=== PATIENT | male | born 1970 | race Caucasian/White ===

== ENCOUNTER 2018-10-04 08:00 | Day surgery (SDC) | payer BC ==
[2018-09-29 13:43] VITALS: BMI 27.2
[~2018-10-04 08:00] MED LIST: LACTATED RINGERS 1,000 ML IV SCH
[2018-10-04 08:26] VITALS: TEMP 98
[2018-10-04] MEDS ORDERED: LIDOCAINE 1% 20 ML VIAL (10MG/ML) FOR IV START INTRADERMA ONE (08:39)
[2018-10-04] MEDS ORDERED: LIDOCAINE 1% INJ 10MG/ML (20 ML MDV) ONE (09:36)
[2018-10-04] MEDS ORDERED: PROPOFOL 10 MG/ML 20 ML VIAL IV ONE (09:36)
--- NOTE | 2018-10-04 10:11 | P.PCN ---
Date of Procedure: 10/04/18 Procedure(s) Performed: Procedure: Colonoscopy and biopsy. Preoperative diagnosis: History of colitis. Postoperative diagnosis: 1. Quiescent colitis with scattered small pseudopolyps. 2. Mild ileitis of uncertain clinical significance. 3. Biopsies obtained blindly from the terminal ileum and biopsies were also obtained from the right colon and sigmoid. Preparation: HalfLytely prep. Sedation: Was provided by anesthesia. Brief clinical history: The patient is a 48-year-old male who was previously diagnosed with colitis at around age 40 or 41 and has been doing well taking 2.4 g of mesalamine daily. The patient has occasional days with diarrhea but for the most part has been doing well and in clinical remission. This evaluation is to assess for neoplasia. Procedure: With the patient on his left lateral decubitus position and after informed consent and adequate sedation, the perianal area was inspected and it did not show any fissures or fistulas. There were no masses felt on digital rectal examination. The Olympus CFQ 160L video colonoscope was then inserted in the rectum in the usual fashion and advanced to the cecum. I was able to briefly advance the endoscope through the ileocecal valve into the terminal ileum but I was not able to maintain the position to obtain biopsies. There was an occasional aphthous ulceration in the terminal ileum and some erythema. I did obtain a blind biopsy from the terminal ileum. The colon, otherwise, showed no active colitis. There was changes consistent with quiescent colitis and scattered small polyps consistent with pseudopolyps. These changes were fairly diffuse, more obvious in the proximal colon. There was no friability or bleeding. I obtained biopsies from the right colon and sigmoid than I retroflexed endoscope in the rectum before the endoscope was withdrawn. The patient tolerated the procedure well. Plan: The patient was reassured. I will make further plans based on his course and biopsy results. I will keep you updated on his progress.
[2018-10-04 10:35] VITALS: RESP 18
[2018-10-04 10:54] VITALS: BP 105/56; PULSE 55
== END 2018-10-04 11:11 | disposition home or self-care (01) ==
LOC: ORWHC2ENDO 08:00
DX: K51.40 Inflammatory polyps of colon without complications (principal); K63.89 Other specified diseases of intestine; K21.9 Gastro-esophageal reflux disease without esophagitis; E78.5 Hyperlipidemia, unspecified; Z79.899 Other long term (current) drug therapy
CPT/HCPCS: 88305; 45380; J2001; J2704

== ENCOUNTER → 2020-09-25 | Day surgery (SDC) | payer BC ==
[2020-09-24 08:09] VITALS: BMI 26.5
[~2020-09-25] MED LIST changes: +LIDOCAINE 1% (10MG/ML) FOR IV START INTRADERMA PRN; +LIDOCAINE 1% INJ 10MG/ML (20 ML MDV) ONE; +PROPOFOL 10 MG/ML 20 ML VIAL IV ONE
[2020-09-25 11:39] VITALS: RESP 16; TEMP 98.5
--- NOTE | 2020-09-25 13:39 | P.PCN ---
Date of Procedure: 09/25/20 Description of Procedure: BRIEF HISTORY: Patient is a 50-year-old male with a known history of ulcerative colitis presenting for EGD and colonoscopy for evaluation of GERD and ulcerative colitis. The patient has been having problems with nausea, indigestion. He was started on Prilosec therapy. Ulcerative colitis diagnosed in 2012 maintained on the Elder. Generally 4 bowel movements daily with no abdominal pain or bleeding. PROCEDURE PERFORMED: Esophagogastroduodenoscopy with biopsy. Colonoscopy with biopsy. PREOPERATIVE DIAGNOSIS: GERD, ulcerative colitis, less colonoscopy in 2018 with findings of quiescent colitis. ESTIMATED BLOOD LOSS: Minimal. IV sedation per anesthesia. PROCEDURE: After informed consent was obtained, the patient was brought into the endoscopy unit. IV sedation was administered by Anesthesia under continuous monitoring. Initially the Olympus GIF-190 video endoscope was inserted into the mouth. Esophagus intubated without any difficulty. It was gradually advanced into the stomach and duodenum and carefully examined. The bulb and the second part of the duodenum appeared normal, with biopsies taken to rule out celiac sprue. The scope at this time was withdrawn to the stomach, adequately insufflated with air, and upon careful examination, mucosa of the antrum, body, cardia and the fundus appeared normal, except for some moderate erythema in the antrum and body suggestive of moderate gastritis with biopsies taken. The scope was then withdrawn into the esophagus. The GE junction was located at 39 cm from the incisors and biopsied. 1 cm hiatal hernia noted. The esophagus appeared normal. There were no erosions or ulcerations seen and the patient tolerated the procedure well. After informed consent was obtained, the patient, was brought into the endoscopy unit. IV sedation was administered by Anesthesia under continuous monitoring. Digital rectal examination was normal. Initially the Olympus CF-190 flexible video colonoscope was then inserted in the rectum, gradually advanced into the cecum without any difficulty. Careful examination was performed as the scope was gradually being withdrawn. Ileocecal valve and the appendiceal orifice were visualized and appeared normal. Prep was excellent. Mucosa of the cecum, ascending colon, transverse colon, descending colon, sigmoid colon, and rectum appeared normal, except for some hypovascularity likely related to previously active ulcerative colitis and some scattered pseudopolyps, with biopsies taken of the right colon, transverse colon, left colon and rectum. The terminal ileum was intubated and appeared normal. Retroflexion was performed in the rectum and no lesions were seen, low-grade internal hemorrhoids. The patient tolerated the procedure well. IMPRESSION: Moderate gastritis. Biopsies taken of the duodenum, antrum and body and GE junction. Low-grade internal hemorrhoids. No evidence of active colitis from rectum to cecum, there is some evidence of prior disease with some hypovascularity noted and some scattered pseudopolyps. Biopsies taken of the right colon, transverse colon, left colon and rectum. RECOMMENDATIONS: Findings of this examination were discussed with the patient in his father. Okay to resume diet. Okay to resume medications. Follow-up in GI clinic as scheduled for results of biopsies. Continue current medical management. Repeat colonoscopy in 2 years for follow-up of colitis..
[2020-09-25 13:52] VITALS: BP 119/73; PULSE 64
== END ==
LOC: ORWHC2ENDO 10:42
PROVIDERS: ATTEND Internal Medicine
DX: K29.50 Unspecified chronic gastritis without bleeding (principal); K44.9 Diaphragmatic hernia without obstruction or gangrene; K64.8 Other hemorrhoids; Z79.899 Other long term (current) drug therapy; E78.5 Hyperlipidemia, unspecified
CPT/HCPCS: 43239; 45380; 88305; J2001; J2704

== ENCOUNTER → 2021-02-08 | Outpatient (CLI) | payer OTHER ==
--- NOTE | 2021-02-08 07:43 | MR ---
EXAMINATION TYPE: MR shoulder RT wo con DATE OF EXAM: 02/08/2021 COMPARISON: None. HISTORY: Rt shoulder pain due to lifting injury TECHNIQUE: Multiplanar, multisequence imaging of the right shoulder is performed without contrast. FINDINGS: Exam is suboptimal as there is some artifact of uncertain etiology particularly on coronal images. There is also motion artifact degradation. Rotator Cuff: Intact distal supraspinatus and infraspinatus tendons. Intact subscapularis tendon. Rot ator cuff muscle bulk preserved. Some increased signal in the distal supraspinatus tendon. Acromioclavicular Joint: Mild to moderate narrowing greatest inferiorly. Mild spurring. Underlying fa t plane maintained. Distal acromion morphology unremarkable. Glenohumeral Joint: Small joint effusion. Mild narrowing. No significant spurring. Labrum: The labrum appears grossly intact given limitation of non-arthrogram study. Biceps Tendon: The long head of biceps is in normal location within bicipital groove. Bone marrow signal: No focal abnormal marrow signal is appreciated. Other: Increased fluid signal subdeltoid/subacromial bursa.. IMPRESSION: No rotator cuff or labral tear. Tendinosis distal supraspinatus tendon. Mild degenerative changes as detailed above.
== END | disposition home or self-care (01) ==
LOC: RADMRIMAIN 06:03
PROVIDERS: ATTEND Family Medicine
DX: S49.91XA Unspecified injury of right shoulder and upper arm, initial encounter (principal); M19.011 Primary osteoarthritis, right shoulder; M67.813 Other specified disorders of tendon, right shoulder

== ENCOUNTER 2021-04-18 06:09 | Emergency (ER) | payer OTHER ==
[2021-04-18 06:31] VITALS: TEMP 98.3
[2021-04-18] MEDS ORDERED: methylPREDNISolone SOD SUCCI 125 MG/2 ML VIAL IM STA (06:47)
[2021-04-18] MEDS ORDERED: MORPHINE SULFATE 4 MG/ML SYRINGE IV STA (06:47)
--- NOTE | 2021-04-18 06:51 | ED ---
Back Pain HPI - General Chief Complaint: Back Pain/Injury Stated Complaint: Back Pain Time Seen by Provider: 04/18/21 06:37 Source: patient, RN notes reviewed Limitations: no limitations - History of Present Illness Initial Comments: Patient is a 50-year-old male presents to emergency department complaining of right low back pain that radiates on the right. He denied any trauma or injury. He does note that he does have a history of sciatica and this does feel similar. He just notes that he is unable to get comfortable at this time and just wants some symptomatic relief. He notes that he does drive a lot and sits for work. He does note that he keeps his wall in the center console conservative back pocket. He did state that he had pinpoint tenderness over the superior aspect of the right buttock. He denied any weakness numbness tingling decreased range of motion or strength in his right lower extremity. He denied any chest pain shortness of breath headache nausea vomiting diarrhea constipation fever fatigue chills - Related Data Home Medications Medication Instructions Recorded Confirmed Atorvastatin [Lipitor] 10 mg PO HS 07/07/18 09/25/20 Cholecalciferol [Vitamin D3] 5,000 unit PO DAILY 07/07/18 09/25/20 Mesalamine [Lialda] 2.4 gm PO DAILY 07/07/18 09/25/20 Multivitamin [Men's Multi-Vitamin] 1 each PO DAILY 07/07/18 09/25/20 Omeprazole [PriLOSEC] 20 mg PO AC-BRKFST 07/07/18 09/25/20 Previous Rx's Medication Instructions Recorded predniSONE 50 mg PO DAILY #5 tab 04/18/21 Allergies Allergy/AdvReac Type Severity Reaction Status Date / Time No Known Allergies Allergy Verified 04/18/21 06:31 Review of Systems ROS Statement: Those systems with pertinent positive or pertinent negative responses have been documented in the HPI. ROS Other: All systems not noted in ROS Statement are negative. Past Medical History Past Medical History: GERD/Reflux, Hyperlipidemia Additional Past Medical History / Comment(s): hx ulcerative colitis History of Any Multi-Drug Resistant Organisms: None Reported Past Surgical History: Orthopedic Surgery Additional Past Surgical History / Comment(s): COLONOSCOPIES, NASAL SX, LT THUMB SX Past Anesthesia/Blood Transfusion Reactions: No Reported Reaction Additional Past Anesthesia/Blood Transfusion Reaction / Comment(s): "FEELS LIKE MY ARM IS ON FIRE WHEN THEY PUT MEDICATION IN MY IV" Past Psychological History: No Psychological Hx Reported Smoking Status: Never smoker Past Alcohol Use History: Occasional Past Drug Use History: None Reported - Past Family History Mother Family Medical History: Cancer Additional Family Medical History / Comment(s): BREAST General Exam Limitations: no limitations General appearance: alert, in no apparent distress Head exam: Present: atraumatic, normocephalic, normal inspection Eye exam: Present: normal appearance, PERRL, EOMI. Absent: scleral icterus, conjunctival injection, periorbital swelling Neck exam: Present: normal inspection Respiratory exam: Present: normal lung sounds bilaterally. Absent: respiratory distress, wheezes, rales, rhonchi, stridor Cardiovascular Exam: Present: regular rate, normal rhythm, normal heart sounds. Absent: systolic murmur, diastolic murmur, rubs, gallop, clicks GI/Abdominal exam: Present: soft, normal bowel sounds. Absent: distended, tenderness, guarding, rebound, rigid Extremities exam: Present: normal inspection, full ROM, normal capillary refill, other (Positive well leg raise test on the right.). Absent: tenderness, pedal edema, joint swelling, calf tenderness Back exam: Present: normal inspection. Absent: tenderness Neurological exam: Present: alert, oriented X3, CN II-XII intact Psychiatric exam: Present: normal affect, normal mood Skin exam: Present: warm, dry, intact, normal color. Absent: rash Course Vital Signs 04/18/21 06:27 Temperature 98.3 F Pulse Rate 62 Respiratory 20 Rate Blood Pressure 118/66 O2 Sat by Pulse 97 Oximetry Medical Decision Making - Medical Decision Making 50-year-old male complaining of right lower back/buttock pain that radiates down the right. X-ray of the lumbar spine, 125 mg of methylprednisolone, 4 mg of morphine ordered. X-ray negative for any acute process. Case discussed with Dr. Silvestre, patient discharge home with conservative management and follow-up primary care. - Radiology Data Radiology results: report reviewed, image reviewed X-ray of the lumbar spine: No evidence of loss of vertebral body height of the lumbar spine to suggest acute compression fracture. Findings are stable. No significant spondylolisthesis. Disposition Clinical Impression: Strain of lumbar region, Lumbar radiculopathy Disposition: HOME SELF-CARE Condition: Stable Instructions (If sedation given, give patient instructions): Acute Low Back Pain (ED) Additional Instructions: Please return to the Emergency Department if symptoms worsen or any other concerns. Take prednisone as prescribed. Can take Tylenol Motrin as needed for pain control. Follow-up primary care in the next 5-7 days. Avoid any strenuous lifting and/or activity. Prescriptions: predniSONE 50 mg PO DAILY #5 tab Is patient prescribed a controlled substance at d/c from ED?: No Referrals: Steve Kennedy MD [Primary Care Provider] - 1-2 days Time of Disposition: 08:04
--- NOTE | 2021-04-18 07:44 | XR ---
EXAMINATION TYPE: XR lumbar spine 2 or 3V DATE OF EXAM: 04/18/2021 CLINICAL HISTORY: Low back pain and right SI joint pain radiating down right leg to knee TECHNIQUE: Frontal, lateral, and oblique images of the lumbar spine are obtained. COMPARISON: 02/14/2019 FINDINGS: There are 5 nonrib-bearing lumbar-type vertebral bodies. Sacroiliac joints are grossly inta ct. There is maintenance of the normal lumbar lordosis. No loss of vertebral body height or intervert ebral disc space. No significant spondylolisthesis. Facets are in alignment. Paravertebral soft tissu es are unremarkable. Findings are stable. IMPRESSION: 1. No evidence of loss of vertebral body height of the lumbar spine to suggest acute compression frac ture. Findings are stable. No significant spondylolisthesis.
[2021-04-18 08:30] VITALS: BP 121/78; PULSE 52; RESP 18
== END 2021-04-18 08:14 | disposition home or self-care (01) ==
LOC: EC 06:09
DX: S39.012A Strain of muscle, fascia and tendon of lower back, initial encounter (principal); M54.16 Radiculopathy, lumbar region; E78.5 Hyperlipidemia, unspecified; K21.9 Gastro-esophageal reflux disease without esophagitis; X58.XXXA Exposure to other specified factors, initial encounter
CPT/HCPCS: 72100; 99283; 96374; 96372; J2270; J2930

== ENCOUNTER → 2021-07-05 | Outpatient (CLI) | payer OTHER ==
--- NOTE | 2021-07-05 12:30 | P.STRESS ---
- Stress Test Note Stress Test Results/Findings: Exam Performed: stress test Exam Date: 07/05/21 Reason for Exam: FH OF HEART DISEASE Height: 5 ft 10 in Weight: 84 kg Protocol: PANCHO Stage: 5 Duration of Exercise: 12:34 Resting Heart Rate: 59 Resting Blood Pressure: 123/75 Maximum Achieved Heart Rate: 188 Maximum Achieved Blood Pressure: 187/61 85% PMHR: 146 100% PMHR: 172 METS: 12.9 Technologist Comment: Stress Test Results/Findings: This is a 50-year-old gentleman being evaluated for cardiac status. Patient history of hypercholesteremia and family history of ischemic heart disease. Stress data: Baseline EKG showed sinus rhythm with normal NM and QRS duration. Blood pressure at rest is 123/75, pulse rate of 59. Patient walked on the Pancho protocol for 4 minutes and 34 seconds achieving a maximal rate of 188 with blood pressure 163/86. EKGs taken during and after exercise did not reveal any significant changes from the baseline. Final impression: #1. Negative stress test #2. Patient did not experience any chest pain #3. No arrhythmias were detected #4. Patient's exercise capacity is good
--- NOTE | 2021-07-08 10:36 | EST ---
Stress Test Results/Findings: Exam Performed: stress test Exam Date: 07/05/21 Reason for Exam: FH OF HEART DISEASE Height: 5 ft 10 in Weight: 84 kg Protocol: PANCHO Stage: 5 Duration of Exercise: 12:34 Resting Heart Rate: 59 Resting Blood Pressure: 123/75 Maximum Achieved Heart Rate: 188 Maximum Achieved Blood Pressure: 187/61 85% PMHR: 146 100% PMHR: 172 METS: 12.9 Technologist Comment: Stress Test Results/Findings: This is a 50-year-old gentleman being evaluated for cardiac status. Patient history of hypercholesteremia and family history of ischemic heart disease. Stress data: Baseline EKG showed sinus rhythm with normal RI and QRS duration. Blood pressure at rest is 123/75, pulse rate of 59. Patient walked on the Pancho protocol for 4 minutes and 34 seconds achieving a maximal rate of 188 with blood pressure 163/86. EKGs taken during and after exercise did not reveal any significant changes from the baseline. Final impression: #1. Negative stress test #2. Patient did not experience any chest pain #3. No arrhythmias were detected #4. Patient's exercise capacity is good MTDD
== END | disposition home or self-care (01) ==
LOC: RADNMMAIN 08:17
PROVIDERS: ATTEND Family Medicine
DX: Z09 Encounter for follow-up examination after completed treatment for conditions other than malignant neoplasm (principal); Z82.49 Family history of ischemic heart disease and other diseases of the circulatory system
CPT/HCPCS: 93017

== ENCOUNTER → 2022-03-21 | Outpatient (CLI) | payer OTHER ==
--- NOTE | 2022-03-22 04:47 | MR ---
EXAMINATION TYPE: MR tomas/lsabraham wo con DATE OF EXAM: 03/21/2022 COMPARISON: Lumbar spine exam 05/06/2010 HISTORY: Mid and lower back pain, RLE radiculopathy. Multiplanar multi echo imaging of the thoracic and lumbar spine without contrast. There is a minimal thoracic dextroscoliosis. There is thoracolumbar levoscoliosis. There is anterior wedging of multiple mid thoracic vertebra up to 25%. This involves T7 and T8 and T9 vertebra. No michell a. Fractures appear old. There is no thoracic paraspinal mass. Thoracic spinal cord has normal signal pattern. No edema. No evidence of thoracic spinal stenosis. Lumbar disc spaces are fairly normal. No compression fracture. No lumbar spinal stenosis. No lumbar p araspinal mass. No evidence of lumbar disc herniation. The lumbar neural foramina are widely patent. Posterior limits are intact. IMPRESSION: Minimal scoliotic deformity. Old mild thoracic compression fractures. No acute fracture seen. No thor acic or lumbar spinal stenosis. Lumbar spine not significantly different than old exam.
== END | disposition home or self-care (01) ==
LOC: RADMRIMAIN 17:14
DX: M54.50 Low back pain, unspecified (principal); M54.6 Pain in thoracic spine
CPT/HCPCS: 72146; 72148

== ENCOUNTER 2022-06-17 08:56 | Day surgery (SDC) | payer OTHER ==
[2022-06-13 13:20] VITALS: BMI 27.2
[~2022-06-17 08:56] MED LIST changes: -LIDOCAINE 1% INJ 10MG/ML (20 ML MDV) ONE; -PROPOFOL 10 MG/ML 20 ML VIAL IV ONE
[2022-06-17 09:32] VITALS: TEMP 98
[2022-06-17] MEDS ORDERED: PROPOFOL 10 MG/ML 20 ML VIAL IV ONE (10:46)
--- NOTE | 2022-06-17 11:02 | P.PCN ---
Date of Procedure: 06/17/22 Procedure(s) Performed: BRIEF HISTORY: Patient is a 51-year-old pleasant white male scheduled for an elective colonoscopy as a part of surveillance of long-standing history of ulcerative colitis diagnosed in 2009. Lately has been having diarrhea with blood or mucus in the stools for 6 months PROCEDURE PERFORMED: Colonoscopy with biopsy. PREOPERATIVE DIAGNOSIS: History of ulcerative colitis. IV sedation per Anesthesia. PROCEDURE: After informed consent was obtained, the patient, was brought into the endoscopy unit. IV sedation was administered by Anesthesia under continuous monitoring. Digital rectal examination was normal. Initially the Olympus CF-160 flexible video colonoscope was then inserted in the rectum, gradually advanced into the cecum without any difficulty. Careful examination was performed as the scope was gradually being withdrawn. Ileocecal valve and the appendiceal orifice were visualized and appeared normal. Prep was excellent. Mucosa of the cecum, ascending colon, transverse colon, descending colon, appeared normal. There was active colitis involving the sigmoid colon and rectum with mucosal erythema friability, granularity with exudates and spontaneous oozing. Multiple biopsies were done at every 10 cm intervals from rectum to cecum. Retroflexion was performed in the rectum and no lesions were seen. The patient tolerated the procedure well. IMPRESSION: Active colitis involving the rectum and sigmoid colon with mucosal erythema friability, granularity and spontaneous oozing with exudates consistent with proctosigmoiditis Rest of the colon appeared normal RECOMMENDATIONS: Findings of this examination were discussed with the patient as well as his family. He was advised to follow with the biopsy results. He will be started on mesalamine enemas once at bedtime and he'll be seen in office in 2-3 weeks. Also advised to increase the Lialda to 4 times daily..
[2022-06-17 11:33] VITALS: PULSE 57
[2022-06-17 11:38] VITALS: BP 120/65; RESP 18
== END 2022-06-17 11:55 | disposition home or self-care (01) ==
LOC: ORWHC2ENDO 08:56
PROVIDERS: ATTEND Internal Medicine Gastroenterology
DX: K51.90 Ulcerative colitis, unspecified, without complications (principal); K51.20 Ulcerative (chronic) proctitis without complications; K21.9 Gastro-esophageal reflux disease without esophagitis; E78.5 Hyperlipidemia, unspecified; Z79.899 Other long term (current) drug therapy; Z80.3 Family history of malignant neoplasm of breast
CPT/HCPCS: 88305; 45380; J2704

== ENCOUNTER → 2022-08-06 | Outpatient (CLI) | payer OTHER ==
[2022-08-06 13:36] VITALS: BP 111/69; PULSE 68; RESP 18; TEMP 98.3
--- NOTE | 2022-08-06 15:12 | P.PAINPG ---
PQRS Measure Charge Sheet Comment: HISTORY OF PRESENT ILLNESS: 52 yr old male as a referral from Dr. Garcia presents today w severe and chronic LBP secondary to DDD, spondylosis and facet arthropathy without myelopathy for evaluation. Pt states his pain level is currently at 7/10 in intensity constant, localized in the lumbar spine, sharp in character w radiation towards the buttocks and BLEs. Pain is provoked by standing/walking for 30 min. Pain is alleviated with home exercise regimen, massage at home, heat, ice, meds (Ibuprofen), topicals without much pain relief, repositioning and rest. Pt is on a steroid for the remaining 9 wks for Crohn's Disease. PMH: GERD, UC, Hyperlipidemia PSH: Colonoscopy (2021), L Thumb Surgery SH: Never smoker, Occasional ETOH use, No illicit drug use. FH: Mo- Breast CA. All: NKDA Meds: See list REVIEW OF ORGAN SYSTEMS: CONSTITUTIONAL: No fevers or chills. No recent weight loss . NEUROLOGICAL: + numbness and tingling along the distal extremities. No seizure disorders or headaches. MUSCULOSKELETAL: + pain PSYCHIATRIC: Denies current depression or suicidal thoughts. Physical Examinations : Constitutional : Cooperative , not in acute distress . Neurologic : Cranial nerve II to XII intact. No focal neurological deficits. Psychiatric : alert & oriented x 3. Matching mood & appropriate affect. Judgment & insight intact. Musculoskeletal : Cervical Spine Motor strength in the deltoid and biceps: Normal right side. Normal Left side Motor strength biceps and the wrist ext ensors: Normal right side . Normal left side Motor strength in the triceps muscle: Normal right side. Normal left side Deep tendon reflexes: Normal at the biceps. Normal at Brachioradialis. Normal at triceps Vertebral body tenderness to deep palpation over Cervical facet loading test: positive bilaterally Spurling test: positive bilaterally Neck distraction test: positive bilaterally Tamra sign: positive bilaterally Lumbar spine Motor strength lower extremities ,thigh and legs 5/5 Right side , 5/5 Left side Deep tendon reflexes : Normal Knee Jerk. Normal Ankle Jerk Vertebral body tenderness over L5 Lumbar facet Loading Test: positive Right / positive Left Range of motion of the lumbar spine Flexion 30 degrees, extension 10 degrees Straight Leg Raise test: Left/ Right positive at degree Lucia test: positive right / positive left. Severe tenderness over the Sacroiliac joint on the Right / Left sides Gaenslen test: positive bilaterally Seated flexion test: positive bilaterally. Sacral spine : Severe tenderness over the Sacroiliac joint: right side / left side Range of motion: Flexion of the lumbar spine <60 degrees Range of motion: Extension of the lumbar spine <20 degrees Gaenslen's Test positive Andrez's Test positive Lucia test: positive right side / left side Thigh Thrust Test Sacral Thrust Test Imaging: MRI without contrast of the lumbar spine from 03/21/[address] without contrast of the lumbar spine from 06/20/22 reviewed X-ray of the lumbar spine from 05/09/22 reviewed Assessment/ Plan : Thoracic Dextroscoliosis, Lumbar Levoscoliosis (M41.86) Recommendation of ALMA L5-S1. May need a series of injections, up to 3 within a 6 mo period, for optimal pain relief. Risks, benefits of procedure discussed and patient verbalized understanding. Admits to anti- coagulant use (Ibuprofen) or medical history of diabetes. Protocol for discontinuation/ continuation of medications reyna procedure discussed. All questions answered. I have spent greater than 30 minutes on patient care today. Dr Maloney was eleanor ilable by phone for the evaluation of this patient. The time was used to review the medical records including relevant urine studies and Prescription history (MAPs), review of the available imaging, evaluation and examination of the patient, coordination of care with the medical staff and if applicable referring physicians, as well as creation of the medical record PQRS Narrative: Smoking Status Never smoker Home Medications: Ambulatory Orders Atorvastatin [Lipitor] 10 mg PO HS 07/07/18 Cholecalciferol [Vitamin D3] 5,000 unit PO DAILY 07/07/18 Mesalamine [Lialda] 2.4 gm PO DAILY 07/07/18 Multivitamin [Men's Multi-Vitamin] 1 each PO DAILY 07/07/18 Vitamin C (Unknown Dose) 1 tab PO DAILY 06/13/22 Controlled Substance Measures - Controlled Substance Measures Is patient prescribed a controlled substance at discharge?: No
== END | disposition home or self-care (01) ==
LOC: PNWHC3 12:40
PROVIDERS: ATTEND Specialist
DX: M41.85 Other forms of scoliosis, thoracolumbar region (principal)
CPT/HCPCS: 99211

== ENCOUNTER 2022-10-21 05:49 | Day surgery (SDC) | payer OTHER ==
[2022-10-17 11:34] VITALS: BMI 28.7
[2022-10-21 06:23] VITALS: RESP 16; TEMP 97.8
[2022-10-21] MEDS ORDERED: methylPREDNISolone ACETATE 40 MG/ML 1 ML VIAL ONE (06:54)
[2022-10-21] MEDS ORDERED: IOPAMIDOL M200 10 ML VIAL ONE (06:54)
[2022-10-21] MEDS ORDERED: LACTATED RINGERS 1,000 ML IV SCH (07:00)
--- NOTE | 2022-10-21 07:07 | P.PCN ---
Date of Procedure: 10/21/22 Description of Procedure: PREOPERATIVE DIAGNOSIS: lumbar radiculopathy POSTOPERATIVE DIAGNOSIS: Lumbar radiculopathy PROCEDURE 1. Lumbar epidural steroid injection under fluoroscopic guidance at the L5-S1 on the right level. 2. Lumbar epidurogram. Imaging: Fluoroscopy was used, images where saved to the medical record ANESTHESIA: Local only EBL: Minimal PROCEDURE INDICATION: The patient with low back pain and radiculitis symptoms unresponsive to conservative treatment. Fluoroscopy was used to optimize visualization of the needle placement and to maximize safety. PROCEDURE DESCRIPTION / TECHNIQUE: The patient was seen and identified in the preoperative area. Risks, benefits, complications including but not limited to infections ,bleeding ,allergic reaction to the medications, nerve damage and incomplete pain relief , as well as alternatives to the procedure were discussed with the patient. The patient agreed to proceed with the procedure and signed the consent. IV was started, and vital signs were stable. Patient was taken to the OR and time out was completed. The patient was placed in the prone position on procedure table and a pillow was placed under the abdomen to reduce lumbar lordosis. The lumbosacral area was prepped and draped in the usual sterile fashion. Vitals were closely monitored during the procedure. Using anterior-posterior fluoroscopy, the L5-S1 interlaminar space was identified and the skin over this site was marked and then infiltrated with 1% lidocaine subcutaneously. Subsequently, a 20-gauge Tuohy epidural needle was inserted and advanced toward the epidural space using the Loss of resistance technique and guided by AP and lateral fluoroscopy. The correct needle position in the epidural space was verified with the injection of 1 mL of Omnipaque 180 contrast to observe an acceptable epidurogram, after negative aspiration for blood and CSF and in the absence of paresthesias. Again after negative aspiration, a 3 ml mixture containing 40mg of depomedrol and 2 ml of preservative free Normal Saline was injected and a washout of epidurogram was seen. Needle was withdrawn intact, skin was cleansed, and bandages were applied. COMPLICATIONS: None DISPOSITION / PLANS: The patient was placed in a supine position and transferred to the recovery area in a stable condition for observation. There was no evidence of lower extremity motor or sensory deficit after the procedure. Patient was discharged from the recovery room after meeting discharge criteria. Home discharge instructions were given to the patient by the staff. The patient was reexamined prior to discharge. The patient will follow up as directed.
[2022-10-21 07:28] VITALS: BP 117/61; PULSE 72
--- NOTE | 2022-10-21 08:37 | FL ---
EXAMINATION TYPE: FL guided pain mgmt statistic DATE OF EXAM: 10/21/2022 HISTORY: Fluoroscopy time 3 seconds of fluoroscopy provided. IMPRESSION: 1. Fluoroscopy time.
== END 2022-10-21 07:28 | disposition home or self-care (01) ==
LOC: ORPAIN 05:49
PROVIDERS: ATTEND Hospitalist
DX: M54.16 Radiculopathy, lumbar region (principal)
CPT/HCPCS: 62323; J1030; Q9966

== ENCOUNTER → 2022-11-05 | Outpatient (CLI) | payer OTHER ==
[2022-11-05 10:11] VITALS: BP 111/58; PULSE 82; RESP 16
--- NOTE | 2022-11-05 14:25 | P.PAINPG ---
PQRS Measure Charge Sheet Comment: A 52 yr old male with a history of severe and chronic low back pain secondary to lumbar DDD and spondylosis with facet arthropathy without myelopathy presents today for evaluation s/p ALMA L5-S1. Pt states he experienced 50 % pain relief x 2 wks s/p procedure. Pain level is currently at 5 /10 in intensity, constant, localized in lower lumbar spine, sore in character w shooting towards the R flank. Pain is provoked by bending, lifting. Pain is alleviated with medications, injections, heat, massage therapy monthly, PT x 6 wks in Dec 2021, home exercise regimen, repositioning and rest. Interventional pain procedures completed include ALMA L5-S1 Patient is currently on DENIES Patient denies any side effects of the medication(s), denies excessive drowsiness or sleepiness, denies suicidal ideation and reports that the current pain medication is helping to control the pain and improve activities of daily living. Patient denies any motor or sensory deficits. Patient denies any fever or night sweats, denies any change in the bowel movements or urination. Physical Examination: -Constitutional: Cooperative. Not in acute distress . - Neurologic: Cranial nerve II to XII intact. No focal neurological deficits. - Psychatric: Alert & oriented x 3. Matching mood & appropriate affect. Judgment and insight intact. - Musculoskeletal: Cervical spine: Muscle bulk/ tone/ strength in the bilateral upper extremities normal Vertebral body tenderness to palpation over Spurling test positive Distraction test positive Facet loading test positive Thoracic spine Muscle bulk / tone/ strength in the bilateral paraspinal muscles normal Vertebral body tender to palpation over Facet loading test positive Lumbar spine: Motor bulk/ tone/ strength lower extremities , thigh and legs : 5/5 Deep tendon reflexes : Normal Knee Jerk. Normal Ankle Jerk . Vertebral body tenderness to palpation over L5 Lumbar Facet Loading Test positive Straight Leg Raise: positive at 30 degrees right side/ left side Gaenslen's Test positive Sacral spine : Severe tenderness over the Sacroiliac joint: right side / left side Range of motion: Flexion of the lumbar spine <60 degrees Range of motion: Extension of the lumbar spine <20 degrees Gaenslen's Test positive Lucia test: positive right side / left side Thigh Thrust Test Sacral Thrust Test Assessment and plan: Chronic low back pain secondary to lumbar degenerative disc disease, spondylosis with facet arthropathy without myelopathy Recommendation of R Paramedian ALMA L5-S1 #2. May need a series, up to 3 within a 6 mo period, for optimal pain relief. Risks, benefits of procedure discussed and pt verbalized understanding. Denies anticoagulant use or medical history of diabetes. All patient questions answered MAPS reviewed and it was appropriate. Prescription refill for Diclofenac gel BID Disp 1 tube w 1 RF. I have spent less than 30 minutes on patient care today. Dr Maloney was available by phone for the evaluation of this patient. The time was used to review the medical records including relevant urine studies and Prescription history (MAPs), review of the available imaging, evaluation and examination of the patient, coordination of care with the medical staff and if applicable referring physicians, as well as creation of the medical record - Pain Location Lower Back Non-Pharmacological Interventions: Heat, Home Exercise, Inactivity, Massage, Physical Therapy, Position/Reposition, Stretching PQRS Narrative: Smoking Status Never smoker Hx Alcohol Use (MH) No Home Medications: Ambulatory Orders Atorvastatin [Lipitor] 10 mg PO HS 07/07/18 Cholecalciferol [Vitamin D3] 5,000 unit PO DAILY 07/07/18 Mesalamine [Lialda] 2.4 gm PO DAILY 07/07/18 Multivitamin [Men's Multi-Vitamin] 1 each PO DAILY 07/07/18 Vitamin C (Unknown Dose) 1 tab PO DAILY 06/13/22 Omeprazole 20 mg PO AC-[id number] 10/21/22 Controlled Substance Measures - Controlled Substance Measures Is patient prescribed a controlled substance at discharge?: No
== END ==
LOC: PNWHC3 09:53
PROVIDERS: ATTEND Specialist
DX: M47.816 Spondylosis without myelopathy or radiculopathy, lumbar region (principal); M51.36 Other intervertebral disc degeneration, lumbar region
CPT/HCPCS: 99211

== ENCOUNTER 2023-03-17 09:41 | Day surgery (SDC) | payer OTHER ==
[~2023-03-17 09:41] MED LIST changes: -LIDOCAINE 1% (10MG/ML) FOR IV START INTRADERMA PRN
[2023-03-17] MEDS ORDERED: IOPAMIDOL M200 10 ML VIAL ONE (10:18)
[2023-03-17] MEDS ORDERED: methylPREDNISolone ACETATE 40 MG/ML 1 ML VIAL ONE (10:18)
--- NOTE | 2023-03-17 10:19 | P.PCN ---
Date of Procedure: 03/17/23 Operative Findings: PREOPERATIVE DIAGNOSIS: lumbar radiculopathy POSTOPERATIVE DIAGNOSIS: Lumbar radiculopathy PROCEDURE 1. Lumbar epidural steroid injection under fluoroscopic guidance at the L5/S1 level. 2. Lumbar epidurogram. Imaging: Fluoroscopy was used, images where saved to the medical record ANESTHESIA: Local Only EBL: Minimal PROCEDURE INDICATION: The patient with low back pain and radiculitis symptoms unresponsive to conservative treatment. Fluoroscopy was used to optimize visualization of the needle placement and to maximize safety. PROCEDURE DESCRIPTION / TECHNIQUE: The patient was seen and identified in the preoperative area. Risks, benefits, complications including but not limited to infections, bleeding, allergic reaction to medications, nerve damage and incomplete pain relief, as well as alternatives to the procedure were discussed with the patient. The patient agreed to proceed with the procedure and signed the consent. The patient was on a steroid taper a couple months ago for Crohns disease. I discussed with him that the fpc use of steroids for injections and crohns will increase his risk of fracture and osteoporosis. I suggested he focus on PT exercises and core strengthening techniques instead of regular injections. Patient understands. Patient was taken to the OR and time out was completed. The patient was placed in the prone position on procedure table and a pillow was placed under the abdomen to reduce lumbar lordosis. The lumbosacral area was prepped and draped i n the usual sterile fashion. Vitals were closely monitored during the procedure. Using anterior-posterior fluoroscopy, the L5/S1 interlaminar space was identified and the skin over this site was marked and then infiltrated with 1% lidocaine subcutaneously. Subsequently, a 20-gauge Tuohy epidural needle was inserted and advanced toward the epidural space using the Loss of resistance technique and guided by AP and lateral fluoroscopy. The correct needle position in the epidural space was verified with the injection of 1 mL of Omnipaque 180 contrast to observe an acceptable epidurogram, after negative aspiration for blood and CSF and in the absence of paresthesias. Again after negative aspiration, a 3 ml mixture containing 40mg of depomedrol and 2 ml of preservative free Normal Saline was injected and a washout of epidurogram was seen. Needle was withdrawn intact, skin was cleansed, and bandages were applied. COMPLICATIONS: None DISPOSITION / PLANS: The patient was placed in a supine position and transferred to the recovery area in a stable condition for observation. There was no evidence of lower extremity motor or sensory deficit after the procedure. Patient was discharged from the recovery room after meeting discharge criteria. Home discharge instructions were given to the patient by the staff. The patient was reexamined prior to discharge. The patient will follow up as directed.
[2023-03-17 10:20] VITALS: TEMP 97.9
--- NOTE | 2023-03-17 10:46 | FL ---
EXAMINATION TYPE: FL guided pain mgmt statistic DATE OF EXAM: 03/17/2023 HISTORY: Fluoroscopy time Total dose area product (DAP) in mGy*cm? (or similar): 0.16682 IMPRESSION: 1. Fluoroscopy time.
[2023-03-17 11:06] VITALS: BP 115/75; PULSE 70; RESP 18
== END 2023-03-17 11:10 | disposition home or self-care (01) ==
LOC: ORPAIN 09:41
PROVIDERS: ATTEND Hospitalist
DX: M54.16 Radiculopathy, lumbar region (principal); Z87.19 Personal history of other diseases of the digestive system
CPT/HCPCS: 62323; J1030; Q9966

== ENCOUNTER → 2023-03-31 | Outpatient (CLI) | payer OTHER ==
[2023-03-31 16:24] LABS: Basophils # (A) 0.02 X 10*3/uL (0.00-0.10); Basophils % (A) 0.3 %; Eosinophils # (A) 0 X 10*3/uL (0.04-0.35); Eosinophils % (A) 0 %; HCT 44.2 % (39.6-50.0); HGB 14.6 g/dL (13.0-17.0); Immature Grans, Automated 0.5 %; Lymphocytes # (A) 0.33 X 10*3/uL (0.90-5.00); Lymphocytes % (A) 5.1 %; MCH 31.2 pg (27.0-32.0); MCV 94.4 fL (80.0-97.0); Mean Platelet Volume 10.9 fL (9.5-12.2); Monocytes # (A) 0.07 X 10*3/uL (0.20-1.00); Monocytes % (A) 1.1 %; NRBC Per 100 WBC 0 /100 WBCS (0.0-0.0); Neutrophils # (A) 6.06 X 10*3/uL (1.80-7.70); Platelet Count 398 X 10*3/uL (140-440); RBC 4.68 X 10*6/uL (4.40-5.60); RDW 12.7 % (11.5-14.5); WBC 6.51 X 10*3/uL (4.50-10.00)
[2023-03-31 16:27] LABS: Albumin 4.6 g/dL (3.8-4.9); Albumin/Globulin Ratio 2.15 (1.60-3.17); Anion Gap 10.6 mmol/L (10.00-18.00); BUN/Creat Ratio 18.84 Ratio (12.00-20.00); Blood Urea Nitrogen 17.2 mg/dL (9.0-27.0); C Reactive Protein 0.4 mg/dL (0.00-0.80); Calcium 9.6 mg/dL (8.7-10.3); Carbon Dioxide 24.3 mmol/L (20.0-27.5); Globulin 2.2 g/dL (1.6-3.3); Non-African American GFR(CKD) 97.5 (60.0-200.0); Total Bilirubin 0.4 mg/dL (0.30-1.20); Total Protein 6.8 g/dL (6.2-8.2)
[2023-03-31 16:54] LABS: Hepatitis C IgG Antibody Nonreactive (Nonreactive)
== END | disposition home or self-care (01) ==
LOC: LABWHC1 10:27
PROVIDERS: ATTEND Internal Medicine Gastroenterology
DX: K51.90 Ulcerative colitis, unspecified, without complications (principal)
CPT/HCPCS: 36415; 80053; 85025; 86140; 86480; 86704; 86803; 87522

== ENCOUNTER → 2024-02-25 | Outpatient (CLI) | payer OTHER ==
[2024-02-25 15:27] LABS: Basophils # (A) 0.03 X 10*3/uL (0.00-0.10); Basophils % (A) 0.5 %; Eosinophils # (A) 0.14 X 10*3/uL (0.04-0.35); Eosinophils % (A) 2.5 %; HCT 41.1 % (39.6-50.0); HGB 13.7 g/dL (13.0-17.0); Lymphocytes # (A) 0.95 X 10*3/uL (0.90-5.00); Lymphocytes % (A) 17.2 %; MCH 30.9 pg (27.0-32.0); MCHC 33.3 g/dL (32.0-37.0); MCV 92.8 FL (80.0-97.0); Mean Platelet Volume 10.8 FL (9.5-12.2); Monocytes # (A) 0.58 X 10*3/uL (0.20-1.00); Monocytes % (A) 10.5 %; NRBC Per 100 WBC 0 X 10*3/uL (0.00-0.01); Neutrophils # (A) 3.81 X 10*3/uL (1.80-7.70); Neutrophils % (A) 69.1 %; Platelet Count 312 X 10*3/uL (140-440); RBC 4.43 X 10*6/uL (4.40-5.60); RDW 12.2 % (11.5-14.5); WBC 5.52 X 10*3/uL (4.50-10.00)
[2024-02-25 15:49] LABS: Erythrocyte Sedimentation Rate 12 mm/Hr (0-20)
[2024-02-25 15:55] LABS: ALT 20 U/L (10-49); AST 20 U/L (14-35); Albumin 4.4 g/dL (3.8-4.9); Alkaline Phosphatase 97 U/L (41-126); BUN/Creat Ratio 14.11 Ratio (12.00-20.00); Blood Urea Nitrogen 12.7 mg/dL (9.0-27.0); C Reactive Protein <0.30 mg/dL (0.00-0.80); Calcium 9.7 mg/dL (8.7-10.3); Carbon Dioxide 22.4 mmol/L (21.6-31.8); Chloride 106 mmol/L (96-109); Globulin 2.2 g/dL (1.6-3.3); Glucose 103 mg/dL (70-110); Potassium 4.3 mmol/L (3.5-5.5); Sodium 140 mmol/L (135-145); Total Bilirubin 0.4 mg/dL (0.3-1.2); Total Protein 6.6 g/dL (6.2-8.2)
== END | disposition home or self-care (01) ==
LOC: LABWHC1 09:52
PROVIDERS: ATTEND Internal Medicine Gastroenterology
DX: K51.90 Ulcerative colitis, unspecified, without complications (principal)
CPT/HCPCS: 36415; 80053; 83993; 85025; 85652; 86140

== ENCOUNTER 2024-07-15 13:32 | Day surgery (SDC) | payer OTHER ==
[2024-07-13 15:17] VITALS: BMI 28.7
[2024-07-15 14:42] VITALS: TEMP 97.3
[2024-07-15] MEDS: IV FLUID CONTINUATION 1,000 ML IV ONE (14:43)
[2024-07-15] MEDS ORDERED: LIDOCAINE 1% INJ 10MG/ML (20 ML MDV) ONE (16:12)
[2024-07-15] MEDS ORDERED: PROPOFOL 10 MG/ML 20 ML VIAL IV ONE (16:12)
--- NOTE | 2024-07-15 16:34 | P.PCN ---
Date of Procedure: 07/15/24 Procedure(s) Performed: BRIEF HISTORY: Patient is a 53-year-old pleasant white male scheduled for an elective colonoscopy as a part of longstanding history of ulcerative colitis diagnosed in 2009. The patient has been steroid-dependent since 2021 and was started on adalimumab injections every 2 weeks since June 2023. Is been off the steroids for the last 6 months. Still has about 3-4 bowel movements daily but no blood or mucus in the stool. Complains of some rectal urgency. Is scheduled for a surveillance colonoscopy today. PROCEDURE PERFORMED: Colonoscopy with biopsies. PREOPERATIVE DIAGNOSIS: History of ulcerative colitis. IV sedation per Anesthesia. PROCEDURE: After informed consent was obtained, the patient, was brought into the endoscopy unit. IV sedation was administered by Anesthesia under continuous monitoring. Digital rectal examination was normal. Initially the Olympus CF-160 flexible video colonoscope was then inserted in the rectum, gradually advanced into the cecum without any difficulty. Careful examination was performed as the scope was gradually being withdrawn. Ileocecal valve and the appendiceal orifice were visualized and appeared normal. Prep was excellent. Mucosa of the cecum, ascending colon, transverse colon, descending colon. There was active colitis involving the, sigmoid colon, and rectum with mucosal erythema, friability, granularity and pseudopolyps up to 30 cm from the anal verge and multiple biopsies were done from this area. Rmal. Retroflexion was performed in the rectum and no lesions were seen. The patient tolerated the procedure well. IMPRESSION: Active proctosigmoiditis with mucosal erythema, friability, granularity with er osions and pseudopolyps up to 30 cm from anal verge s/p multiple biopsies Rest of the colon appeared normal. RECOMMENDATIONS: Findings of this examination were discussed with the patient as well as his family. He was advised to follow-up with the biopsy results. He will be seen in the office in 2 to 3 weeks. Will obtain adalimumab levels and consider increasing the dose to every week or changing to a different biologic agent. If the biopsy does not show evidence of dysplasia he can have repeat colonoscopy in 2 years..
[2024-07-15 16:39] VITALS: RESP 16
[2024-07-15 16:47] VITALS: BP 105/62; PULSE 66
== END 2024-07-15 17:12 | disposition home or self-care (01) ==
LOC: ORWHC2ENDO 13:32
PROVIDERS: ATTEND Internal Medicine Gastroenterology
DX: K51.90 Ulcerative colitis, unspecified, without complications (principal); Z79.52 Long term (current) use of systemic steroids
CPT/HCPCS: 45380; 88305

== ENCOUNTER → 2024-12-09 | Outpatient (CLI) | payer OTHER ==
[~2024-12-09] MED LIST changes: -LACTATED RINGERS 1,000 ML IV SCH; +SODIUM CHLORIDE 0.9% 250 ML in EMPTY BAG 1 BAG IV PRN
[2024-12-09] MEDS: SODIUM CHLORIDE 0.9% 500 ML 500 ML in EMPTY BAG 1 BAG IV PRN (13:29)
[2024-12-09 13:35] VITALS: BP 118/72; PULSE 57; RESP 16; TEMP 98.3
[2024-12-09] MEDS: VEDOLIZUMAB 300 MG in SODIUM CHLORIDE 0.9% 250 ML IV NR (14:09)
== END ==
LOC: PROCWHC3 12:42
PROVIDERS: ATTEND Internal Medicine Gastroenterology
DX: K51.90 Ulcerative colitis, unspecified, without complications (principal)
CPT/HCPCS: 96365; J3380

== ENCOUNTER → 2025-02-03 | Outpatient (CLI) | payer OTHER ==
[2025-02-03 13:23] VITALS: BP 122/78; PULSE 59; RESP 16; TEMP 98.2
[2025-02-03] MEDS: SODIUM CHLORIDE 0.9% 500 ML 500 ML in EMPTY BAG 1 BAG IV PRN (13:23)
[2025-02-03] MEDS: VEDOLIZUMAB 300 MG in SODIUM CHLORIDE 0.9% 250 ML IV NR (13:47)
== END ==
LOC: PROCWHC3 12:40
PROVIDERS: ATTEND Internal Medicine Gastroenterology
DX: K51.90 Ulcerative colitis, unspecified, without complications (principal)
CPT/HCPCS: 96365; J3380

== ENCOUNTER → 2025-03-30 | Outpatient (CLI) | payer OTHER | END | disposition home or self-care (01) | LOC: LABWHC1 07:20 | PROVIDERS: ATTEND Internal Medicine Gastroenterology | DX: K51.90 Ulcerative colitis, unspecified, without complications (principal); K51.311 Ulcerative (chronic) rectosigmoiditis with rectal bleeding | CPT/HCPCS: 36415; 83993; 85652; 86140 ==

== ENCOUNTER 2025-04-19 03:10 | Emergency (ER) | payer OTHER ==
[2025-04-19 03:14] VITALS: TEMP 97.7
[2025-04-19] MEDS: SODIUM CHLORIDE 0.9% 500 ML 500 ML IV STA (03:54)
[2025-04-19] MEDS: diphenhydrAMINE 50 MG/ML 1 ML VIAL IVP STA (03:55)
[2025-04-19] MEDS: METOCLOPRAMIDE 5 MG/ML 2 ML VIAL IVP STA (03:55)
--- NOTE | 2025-04-19 04:01 | CT ---
EXAM: CT Head Without and With Intravenous Contrast CLINICAL HISTORY: ITS.REASON CT Reason: WHOL TECHNIQUE: Axial computed tomography images of the head/brain without and with intravenous contrast. CTDI is 97.7 mGy and DLP is 2497.4 mGy-cm. This CT exam was performed using one or more of the following dose reduction techniques: automated exposure control, adjustment of the mA and/or kV according to patient size, and/or use of iterative reconstruction technique. COMPARISON: No relevant prior studies available. FINDINGS: Brain: No hemorrhage. No significant white matter disease. No edema. Normal enhancement. Ventricles: No hydrocephalus. Bones/joints: Unremarkable. Soft tissues: Unremarkable. Sinuses: No air fluid level. Left maxillary sinus mucosal retention cyst Mastoid air cells: Clear. No venous sinus thrombosis. Hypoplastic left transverse and sigmoid sinus. Severe stenosis left sigmoid sinus from arachnoid granulation. IMPRESSION: No acute hemorrhage, hydrocephalus, or mass effect.
[2025-04-19] MEDS: KETOROLAC 15 MG/ML 1 ML VIAL IVP STA (04:09)
[2025-04-19] MEDS ORDERED: SUMAtriptan succinate 6 MG/0.5 ML VIAL SQ STA (04:43)
[2025-04-19] MEDS: SUMAtriptan succinate 6 MG/0.5 ML VIAL SQ STA (04:54)
[2025-04-19] MEDS: MORPHINE SULFATE 4 MG/ML SYRINGE IVP STA (04:55)
[2025-04-19] MEDS: ONDANSETRON 4 MG/2 ML VIAL IVP STA (04:55)
[2025-04-19 04:57] VITALS: BP 128/73; PULSE 58; RESP 16
--- NOTE | 2025-04-19 05:58 | ED ---
Headache HPI - General Chief Complaint: Headache Stated Complaint: headache Time Seen by Provider: 04/19/25 03:22 Mode of arrival: ambulatory Limitations: no limitations - History of Present Illness Initial Comments: This patient is 54-year-old man who complains of having headache. He states that this has been going on for 5 days now. He states that it has come on gradually and it is now the worst headache of his life. He has not noted fever or chills. No neck stiffness. No neurologic symptoms. He has tried [id number] medication with no relief. There was no trauma MD Complaint: headache Onset/Timin -: days(s) Onset Description: gradual Location: frontal Severity: severe Severity scale (1-10): 9 Quality: aching Consistency: constant Improves With: nothing Worsens With: light, noise Associated Symptoms: photophobia Treatments Prior to Arrival: Acetaminophen - Related Data Home Medications Medication Instructions Recorded Confirmed Atorvastatin [Lipitor] 10 mg PO HS 07/07/18 03/31/25 Cholecalciferol [Vitamin D3] 5,000 unit PO DAILY 07/07/18 03/31/25 Mesalamine [Lialda] 4 tab PO DAILY 07/07/18 03/31/25 Multivitamin [Men's Multi-Vitamin] 1 each PO DAILY 07/07/18 03/31/25 Vitamin C (Unknown Dose) 1 tab PO DAILY 06/13/22 03/31/25 Omeprazole 20 mg PO QAM 10/21/22 03/31/25 Amjevita (Unknown Dose) 1 dose SQ Q14D 07/13/24 03/31/25 Allergies Allergy/AdvReac Type Severity Reaction Status Date / Time No Known Allergies Allergy Verified 04/28/25 15:26 Review of Systems ROS Statement: Those systems with pertinent positive or pertinent negative responses have been documented in the HPI. ROS Other: All systems not noted in ROS Statement are negative. Constitutional: Denies: fever, chills, weakness Eyes: Denies: eye pain, vision change ENT: Denies: ear pain, hearing loss, congestion Respiratory: Denies: cough, dyspnea Cardiovascular: Denies: chest pain, syncope Gastrointestinal: Reports: nausea. Denies: abdominal pain, vomiting Genitourinary: Denies: dysuria, hematuria Musculoskeletal: Denies: back pain Skin: Denies: rash Neurological: Reports: headache. Denies: weakness, numbness, paresthesias, confusion Past Medical History Past Medical History: GERD/Reflux, Hyperlipidemia Additional Past Medical History / Comment(s): Ulcerative colitis. Back pain. History of Any Multi-Drug Resistant Organisms: None Reported Past Surgical History: Orthopedic Surgery Additional Past Surgical History / Comment(s): COLONOSCOPIES, NASAL SURGERY, LEFT THUMB SURGERY. Past Anesthesia/Blood Transfusion Reactions: No Reported Reaction Additional Past Anesthesia/Blood Transfusion Reaction / Comment(s): "FEELS LIKE MY ARM IS ON FIRE WHEN THEY PUT MEDICATION IN MY IV." Past Psychological History: No Psychological Hx Reported Smoking Status: Never smoker Past Alcohol Use History: Occasional Past Drug Use History: None Reported - Past Family History Mother Family Medical History: Cancer Additional Family Medical History / Comment(s): BREAST CANCER. General Exam Limitations: no limitations General appearance: alert, in no apparent distress Head exam: Present: atraumatic, normocephalic Eye exam: Present: normal appearance, PERRL, EOMI. Absent: scleral icterus, conjunctival injection ENT exam: Present: normal oropharynx Neck exam: Present: normal inspection Respiratory exam: Present: normal lung sounds bilaterally. Absent: respiratory distress, wheezes, rales, rhonchi, stridor, accessory muscle use Cardiovascular Exam: Present: regular rate, normal rhythm, normal heart sounds. Absent: systolic murmur, diastolic murmur, rubs, gallop GI/Abdominal exam: Present: soft. Absent: distended, tenderness, guarding, rebound, rigid Extremities exam: Present: normal inspection Back exam: Present: normal inspection Neurological exam: Present: alert, oriented X3, CN II-XII intact. Absent: motor sensory deficit Skin exam: Present: warm, dry, intact, normal color. Absent: rash Course Vital Signs 04/19/25 04/19/25 03:11 04:57 Temperature 97.7 F Pulse Rate 73 58 L Respiratory 18 16 Rate Blood Pressure 144/85 128/73 O2 Sat by Pulse 98 98 Oximetry Medical Decision Making - Medical Decision Making Patient is 61-year-old man with headache that is not worst of life. Given this the patient is sent for CT scan to rule out subarachnoid hemorrhage. The patient also treated with fluids and medications. He did have significant improvement. The patient at that point wanting to go home for rest. Discussed rationale for lumbar puncture with worst headache of life and at this point patient declines. Will return if headache worsens. Patient to follow-up with neurology if not totally resolved The patient had CT scan of the brain that I interpreted as negative for bony abnormality, no acute intracranial hemorrhage, mass effect or midline shift Was pt. sent in by a medical professional or institution (, [facility], [facility], urgent care, hospital, or care home...) When possible be specific @ -[No] Did you speak to anyone other than the patient for history (EMS, parent, family, police, friend...)? What history was obtained from this source @ -[No] Did you review nursing and triage notes (agree or disagree)? Why? @ -[I reviewed and agree with nursing and triage notes] Were old charts reviewed (outside hosp., previous admission, EMS record, old EKG, old radiological studies, urgent care reports/EKG's, care home records)? Report findings @ -[No old charts were reviewed] Differential Diagnosis (chest pain, altered mental status, abdominal pain women, abdominal pain men, vaginal bleeding, weakness, fever, dyspnea, syncope, headache, dizziness, GI bleed, back pain, seizure, CVA, palpatations, mental health, musculoskeletal)? @ -Differential Headache: Migraine, tension, cluster, carbon monoxide, central venous thrombosis, pension karma temporal arteritis, acute closure glaucoma, intercranial hemorrhage, mastoiditis, sinusitis, head injury, this is not meant to be an all-inclusive list. EKG interpreted by me (3pts min.). @ -[As above] X-rays interpreted by me (1pt min.). @ -[None done] CT interpreted by me (1pt min.). @ -[I interpreted as above U/S interpreted by me (1pt. min.). @ -[None done] What testing was considered but not performed or refused? (CT, X-rays, U/S, labs)? Why? @ -[None] What meds were considered but not given or refused? Why? @ -[None] Did you discuss the management of the patient with other professionals (professionals i.e. [facility] Hodges, [facility], lab, RT, psych nurse, protective services social worker, real estate lawyer, teacher, health officer, child support case officer)? Give summary @ -[No] Was smoking cessation discussed for >3mins.? @ -[No] Was critical care preformed (if so, how long)? @ -[No] Were there social determinants of health that impacted care today? How? (Homelessness, low income, unemployed, alcoholism, drug addiction, transportation, low edu. Level, literacy, decrease access to med. care, intermediate, rehab)? @ -[No] Was there de-escalation of care discussed even if they declined (Discuss DNR or withdrawal of care, Hospice)? DNR status @ -[No] What co-morbidities impacted this encounter? (DM, HTN, Smoking, COPD, CAD, Cancer, CVA, ARF, Chemo, Hep., AIDS, mental health diagnosis, sleep apnea, morbid obesity)? @ -[None] Was patient admitted / discharged? Hospital course, mention meds given and route, prescriptions, significant lab abnormalities, going to OR and other pertinent info. @ -[See above Undiagnosed new problem with uncertain prognosis? @ -[No] Drug Therapy requiring intensive monitoring for toxicity (Heparin, Nitro, Insulin, Cardizem)? @ -[No] Were any procedures done? @ -[No] Diagnosis/symptom? @ -[Acute headache Acute, or Chronic, or Acute on Chronic? @ -[Acute Uncomplicated (without systemic symptoms) or Complicated (systemic symptoms)? @ -[Uncomplicated Side effects of treatment? @ -[No] Exacerbation, Progression, or Severe Exacerbation? @ -[No] Poses a threat to life or bodily function? How? (Chest pain, [place], [place], pneumonia, PE, COPD, DKA, ARF, appy, cholecystitis, CVA, Diverticulitis, Homicidal, Suicidal, threat to staff... and all critical care pts) @ -[No] All treatments are based on ideal body weight as in ED triage Disposition Clinical Impression: Headache Disposition: HOME SELF-CARE Condition: Good Instructions (If sedation given, give patient instructions): Acute Headache (ED ) Is patient prescribed a controlled substance at d/c from ED?: No Referrals: Esteban Brown MD [Primary Care Provider] - 1-2 days Renee Hodgson MD [REFERRING] - 1-2 days
== END 2025-04-19 06:09 | disposition home or self-care (01) ==
LOC: EC 03:10
DX: R51.9 Headache, unspecified (principal)
CPT/HCPCS: 70470; 99284; 96374; 96375 ×3; 96361; J3030; J1200; J2765; J2405; J1885; Q9967

== ENCOUNTER 2025-04-28 14:47 | Emergency (ER) | payer OTHER ==
--- NOTE | 2025-04-28 18:12 | ED ---
General Adult HPI - General Chief complaint: Headache Stated complaint: Migraines Time Seen by Provider: 04/28/25 14:59 Source: patient, RN notes reviewed Mode of arrival: ambulatory Limitations: no limitations - History of Present Illness Onset/Timin -: days(s) Location: head Severity scale (1-10): 8 Quality: dull Consistency: constant Associated Symptoms: denies other symptoms - Related Data Home Medications Medication Instructions Recorded Confirmed Atorvastatin [Lipitor] 10 mg PO HS 07/07/18 03/31/25 Cholecalciferol [Vitamin D3] 5,000 unit PO DAILY 07/07/18 03/31/25 Mesalamine [Lialda] 4 tab PO DAILY 07/07/18 03/31/25 Multivitamin [Men's Multi-Vitamin] 1 each PO DAILY 07/07/18 03/31/25 Vitamin C (Unknown Dose) 1 tab PO DAILY 06/13/22 03/31/25 Omeprazole 20 mg PO QAM 10/21/22 03/31/25 Amjevita (Unknown Dose) 1 dose SQ Q14D 07/13/24 03/31/25 Allergies Allergy/AdvReac Type Severity Reaction Status Date / Time No Known Allergies Allergy Verified 04/28/25 15:26 Review of Systems ROS Statement: Those systems with pertinent positive or pertinent negative responses have been documented in the HPI. ROS Other: All systems not noted in ROS Statement are negative. Past Medical History Past Medical History: GERD/Reflux, Hyperlipidemia Additional Past Medical History / Comment(s): Ulcerative colitis. Back pain. History of Any Multi-Drug Resistant Organisms: None Reported Past Surgical History: Orthopedic Surgery Additional Past Surgical History / Comment(s): COLONOSCOPIES, NASAL SURGERY, LEFT THUMB SURGERY. Past Anesthesia/Blood Transfusion Reactions: No Reported Reaction Additional Past Anesthesia/Blood Transfusion Reaction / Comment(s): "FEELS LIKE MY ARM IS ON FIRE WHEN THEY PUT MEDICATION IN MY IV." Past Psychological History: No Psychological Hx Reported Smoking Status: Never smoker Past Alcohol Use History: Occasional Past Drug Use History: None Reported - Past Family History Mother Family Medical History: Cancer Additional Family Medical History / Comment(s): BREAST CANCER. General Exam Limitations: no limitations General appearance: alert, in no apparent distress Head exam: Present: atraumatic, normocephalic, normal inspection Eye exam: Present: normal appearance, PERRL, EOMI. Absent: scleral icterus, conjunctival injection, periorbital swelling ENT exam: Present: normal exam, mucous membranes moist Neck exam: Present: normal inspection. Absent: tenderness, meningismus, lymphadenopathy Respiratory exam: Present: normal lung sounds bilaterally. Absent: respiratory distress, wheezes, rales, rhonchi, stridor Cardiovascular Exam: Present: regular rate, normal rhythm, normal heart sounds. Absent: systolic murmur, diastolic murmur, rubs, gallop, clicks GI/Abdominal exam: Present: soft, normal bowel sounds. Absent: distended, tenderness, guarding, rebound, rigid Extremities exam: Present: normal inspection, full ROM, normal capillary refill. Absent: pedal edema, joint swelling, calf tenderness Back exam: Present: tenderness (Positive point TTP at base of the left skull). Absent: muscle spasm, paraspinal tenderness, vertebral tenderness Neurological exam: Present: alert, oriented X3, CN II-XII intact Psychiatric exam: Present: normal affect, normal mood Skin exam: Present: warm, dry, intact, normal color. Absent: rash Course Vital Signs 04/28/25 15:23 Temperature 97.9 F Pulse Rate 65 Respiratory 20 Rate Blood Pressure 123/72 O2 Sat by Pulse 99 Oximetry Medical Decision Making - Medical Decision Making Was pt. sent in by a medical professional or institution (NIECY Hodges, LADLE REPAIRER, urgent care, hospital, or fdc...) When possible be specific @ -[No] Did you speak to anyone other than the patient for history (EMS, parent, family, police, friend...)? What history was obtained from this source @ -[No] Did you review nursing and triage notes (agree or disagree)? Why? @ -[I reviewed and agree with nursing and triage notes] Were old charts reviewed (outside hosp., previous admission, EMS record, old EKG, old radiological studies, urgent care reports/EKG's, fdc records)? Report findings @ -[No old charts were reviewed] Differential Diagnosis (chest pain, altered mental status, abdominal pain women, abdominal pain men, vaginal bleeding, weakness, fever, dyspnea, syncope, headache, dizziness, GI bleed, back pain, seizure, CVA, palpatations, mental health, musculoskeletal)? @ -Differential Headache: Migraine, tension, cluster, carbon monoxide, central venous thrombosis, pension karma temporal arteritis, acute closure glaucoma, intercranial hemorrhage, mastoiditis, sinusitis, head injury, this is not meant to be an all-inclusive list. EKG interpreted by me (3pts min.). @ -Not on X-rays interpreted by me (1pt min.). @ -[None done] CT interpreted by me (1pt min.). @ -[None done] U/S interpreted by me (1pt. min.). @ -[None done] What testing was considered but not performed or refused? (CT, X-rays, U/S, labs)? Why? @ -Patient declined head CT scan, stating he has had his head scanned 3 times since the initial start of symptoms, including twice at [facility] with no concerning findings. What meds were considered but not given or refused? Why? @ -[None] Did you discuss the management of the patient with other professionals (professionals i.e. , PA, LADLE REPAIRER, lab, RT, psych nurse, manager social work, rn nicu, teacher, army officer, correctional case records supervisor)? Give summary @ -[No] Was smoking cessation discussed for >3mins.? @ -[No] Was critical care preformed (if so, how long)? @ -[No] Were there social determinants of health that impacted care today? How? (Homelessness, low income, unemployed, alcoholism, drug addiction, transportation, low edu. Level, literacy, decrease access to med. care, alf, rehab)? @ -[No] Was there de-escalation of care discussed even if they declined (Discuss DNR or withdrawal of care, Hospice)? DNR status @ -[No] What co-morbidities impacted this encounter? (DM, HTN, Smoking, COPD, CAD, Cancer, CVA, ARF, Chemo, Hep., AIDS, mental health diagnosis, sleep apnea, morbid obesity)? @ -[None] Was patient admitted / discharged? Hospital course, mention meds given and route, prescriptions, significant lab abnormalities, going to OR and other pertinent info. @ -[hospital course] Undiagnosed new problem with uncertain prognosis? @ -[No] Drug Therapy requiring intensive monitoring for toxicity (Heparin, Nitro, Insulin, Cardizem)? @ -[No] Were any procedures done? @ -[No] Diagnosis/symptom? @ -[default] Acute, or Chronic, or Acute on Chronic? @ -Acute Uncomplicated (without systemic symptoms) or Complicated (systemic symptoms)? @ -Uncomplicated Side effects of treatment? @ -[No] Exacerbation, Progression, or Severe Exacerbation? @ -Exacerbation Poses a threat to life or bodily function? How? (Chest pain, [place], [place], pneumonia, PE, COPD, DKA, ARF, appy, cholecystitis, CVA, Diverticulitis, Homicidal, Suicidal, threat to staff... and all critical care pts) @ -[No] Disposition Clinical Impression: Migraine headache Disposition: HOME SELF-CARE Condition: Fair Instructions (If sedation given, give patient instructions): Acute Headache (ED) Additional Instructions: [facility] to [facility] etiology of [facility] Is patient prescribed a controlled substance at d/c from ED?: No Referrals: Esteban Brown MD [Primary Care Provider] - 1-2 days Andrew Herrera MD [STAFF PHYSICIAN] - 1-2 days Time of Disposition: 19:42
[2025-04-28] MEDS: diphenhydrAMINE 50 MG/ML 1 ML VIAL IVP STA (19:00)
[2025-04-28] MEDS: METOCLOPRAMIDE 5 MG/ML 2 ML VIAL IVP STA (19:00)
[2025-04-28] MEDS: KETOROLAC 15 MG/ML 1 ML VIAL IVP STA (19:01)
[2025-04-28] MEDS: SODIUM CHLORIDE 0.9% 1,000 ML IV STA (19:02)
[2025-04-28] MEDS: DEXAMETHASONE SOD PHOSPHATE 10 MG/ML 1 ML VIAL IVP STA (19:50)
[2025-04-28 19:54] VITALS: BP 123/79; PULSE 72; RESP 16; TEMP 98.2
== END 2025-04-28 19:56 | disposition home or self-care (01) ==
LOC: EC 14:47
DX: G43.909 Migraine, unspecified, not intractable, without status migrainosus (principal)
CPT/HCPCS: 99283; 96374; 96375; 96361; J1200; J1100; J2765; J1885

== ENCOUNTER 2025-05-25 01:18 | Emergency (ER) | payer OTHER ==
[2025-05-25 01:21] VITALS: RESP 18
[2025-05-25] MEDS: HYDROmorphone 0.5 MG/0.5 ML SYRINGE IM STA (02:28)
[2025-05-25] MEDS: KETOROLAC 15 MG/ML 1 ML VIAL IM STA (02:29)
[2025-05-25] MEDS: DEXAMETHASONE SOD PHOSPHATE 10 MG/ML 1 ML VIAL IM STA (02:29)
--- NOTE | 2025-05-25 03:33 | ED ---
Extremity Problem HPI - General Chief complaint: Extremity Problem,Nontraumatic Stated complaint: back pain Time Seen by Provider: 05/25/25 01:24 Source: patient Mode of arrival: wheelchair Limitations: no limitations - History of Present Illness Initial comments: 54-year-old male presenting with chief complaint of back pain. Patient states he is having a flareup of his sciatic pain. Feels identical to previous episodes of sciatic pain. Denies any injury or trauma. No loss of bowel or bladder control or saddle paresthesia. No weakness. Worse with particular motions. - Related Data Home Medications Medication Instructions Recorded Confirmed Atorvastatin [Lipitor] 10 mg PO HS 07/07/18 03/31/25 Cholecalciferol [Vitamin D3] 5,000 unit PO DAILY 07/07/18 03/31/25 Mesalamine [Lialda] 4 tab PO DAILY 07/07/18 03/31/25 Multivitamin [Men's Multi-Vitamin] 1 each PO DAILY 07/07/18 03/31/25 Vitamin C (Unknown Dose) 1 tab PO DAILY 06/13/22 03/31/25 Omeprazole 20 mg PO QAM 10/21/22 03/31/25 Amjevita (Unknown Dose) 1 dose SQ Q14D 07/13/24 03/31/25 Previous Rx's Medication Instructions Recorded methylPREDNISolone [Medrol Dose 0 mg PO DIRECTED #1 packet 05/25/25 Pack] Allergies Allergy/AdvReac Type Severity Reaction Status Date / Time No Known Allergies Allergy Verified 05/25/25 01:21 Review of Systems ROS Statement: Those systems with pertinent positive or pertinent negative responses have been documented in the HPI. ROS Other: All systems not noted in ROS Statement are negative. Past Medical History Past Medical History: GERD/Reflux, Hyperlipidemia Additional Past Medical History / Comment(s): Ulcerative colitis. Back pain. History of Any Multi-Drug Resistant Organisms: None Reported Past Surgical History: Orthopedic Surgery Additional Past Surgical History / Comment(s): COLONOSCOPIES, NASAL SURGERY, LEFT THUMB SURGERY. Past Anesthesia/Blood Transfusion Reactions: No Reported Reaction Additional Past Anesthesia/Blood Transfusion Reaction / Comment(s): "FEELS LIKE MY ARM IS ON FIRE WHEN THEY PUT MEDICATION IN MY IV." Past Psychological History: No Psychological Hx Reported Smoking Status: Never smoker Past Alcohol Use History: Occasional Past Drug Use History: None Reported - Past Family History Mother Family Medical History: Cancer Additional Family Medical History / Comment(s): BREAST CANCER. General Exam Limitations: no limitations General appearance: alert, in no apparent distress Head exam: Present: atraumatic, normocephalic, normal inspection Eye exam: Present: normal appearance, EOMI Neck exam: Present: normal inspection. Absent: meningismus Respiratory exam: Absent: respiratory distress Cardiovascular Exam: Present: regular rate Back exam: Present: normal inspection Neurological exam: Present: alert, oriented X3 Psychiatric exam: Present: normal affect, normal mood Skin exam: Present: warm, dry, normal color Course Vital Signs 05/25/25 05/25/25 01:19 03:50 Temperature 97.5 F L 97.8 F Pulse Rate 69 81 Respiratory 18 18 Rate Blood Pressure 135/78 138/75 O2 Sat by Pulse 97 97 Oximetry Medical Decision Making - Medical Decision Making Was pt. sent in by a medical professional or institution (, PA, CORPORATE LEGAL ASSISTANT, urgent care, hospital, or senior living...) When possible be specific @ -No Did you speak to anyone other than the patient for history (EMS, parent, family, police, friend...)? What history was obtained from this source @ -No Did you review nursing and triage notes (agree or disagree)? Why? @ -I reviewed and agree with nursing and triage notes Were old charts reviewed (outside hosp., previous admission, EMS record, old EKG, old radiological studies, urgent care reports/EKG's, senior living records)? Report findings @ -No old charts were reviewed Differential Diagnosis (chest pain, altered mental status, abdominal pain women, abdominal pain men, vaginal bleeding, weakness, fever, dyspnea, syncope, headache, dizziness, GI bleed, back pain, seizure, CVA, palpatations, mental health, musculoskeletal)? @ - MDM Differential Back Pain: Strain, zoster, cauda equina syndrome, epidural abscess, vertebral osteomyelitis, discitis, fracture, subluxation, disc herniation, DJD, spinal stenosis, dissection, AAA, pancreatitis, peptic ulcer disease, pyelonephritis, kidney stone… this is not meant to be an all-inclusive list. EKG interpreted by me (3pts min.). @ -As above X-rays interpreted by me (1pt min.). @ -None done CT interpreted by me (1pt min.). @ -None done U/S interpreted by me (1pt. min.). @ -None done What testing was considered but not performed or refused? (CT, X-rays, U/S, labs)? Why? @ -None What meds were considered but not given or refused? Why? @ -None Did you discuss the management of the patient with other professionals (professionals i.e. Dr., PA, CORPORATE LEGAL ASSISTANT, lab, RT, psych nurse, social science research assistant, rate clerk, teacher, v/stol landing signal officer, director case management)? Give summary @ -No Was smoking cessation discussed for >3mins.? @ -No Was critical care preformed (if so, how long)? @ -No Were there social determinants of health that impacted care today? How? (Homelessness, low income, unemployed, alcoholism, drug addiction, transportation, low edu. Level, literacy, decrease access to med. care, shelter, rehab)? @ -No Was there de-escalation of care discussed even if they declined (Discuss DNR or withdrawal of care, Hospice)? DNR status @ -No What co-morbidities impacted this encounter? (DM, HTN, Smoking, COPD, CAD, Cancer, CVA, ARF, Chemo, Hep., AIDS, mental health diagnosis, sleep apnea, morbid obesity)? @ -None Was patient admitted / discharged? Hospital course, mention meds given and ro david, prescriptions, significant lab abnormalities, going to OR and other pertinent info. @ -54-year-old male presenting with chief complaint of back pain. Feels identical to previous episodes of sciatic pain. No red flag symptoms. He reports improvement after pain medication. Educated on supportive management at home. Provided with referral to orthopedics. Follow-up with PCP. Report back to ER with any new or worsening symptoms. Discussed return parameters and answered all questions. Patient conveyed verbal understanding and agreed to the plan. I discussed this case in detail with my attending Dr. Patel Undiagnosed new problem with uncertain prognosis? @ -No Drug Therapy requiring intensive monitoring for toxicity (Heparin, Nitro, Insulin, Cardizem)? @ -No Were any procedures done? @ -No Diagnosis/symptom? @ -Sciatica Acute, or Chronic, or Acute on Chronic? @ -Acute Uncomplicated (without systemic symptoms) or Complicated (systemic symptoms)? @ -Uncomplicated Side effects of treatment? @ -No Exacerbation, Progression, or Severe Exacerbation? @ -No Poses a threat to life or bodily function? How? (Chest pain, [place], [place], pneumonia, PE, COPD, DKA, ARF, appy, cholecystitis, CVA, Diverticulitis, Homicidal, Suicidal, threat to staff... and all critical care pts) @ -Unlikely Disposition Clinical Impression: Sciatica Disposition: HOME SELF-CARE Condition: Good Instructions (If sedation given, give patient instructions): Sciatica (ED) Additional Instructions: Follow-up with PCP. Report back to ER with any new or worsening symptoms. Prescriptions: methylPREDNISolone [Medrol Dose Pack] 0 mg PO DIRECTED #1 packet Is patient prescribed a controlled substance at d/c from ED?: No Referrals: Esteban Brown MD [Primary Care Provider] - 1-2 days Jackson Hebert DO [Doctor of Osteopathic Medicine] - 1-2 days Time of Disposition: 03:33
[2025-05-25 03:52] VITALS: BP 138/75; PULSE 81; TEMP 97.8
== END 2025-05-25 03:52 | disposition home or self-care (01) ==
LOC: EC 01:18
DX: M54.30 Sciatica, unspecified side (principal)
CPT/HCPCS: 99283; 96372 ×3; J1100; J1885; J1171

== ENCOUNTER → 2025-05-26 | Outpatient (CLI) | payer OTHER ==
[2025-05-26 13:20] VITALS: BP 117/70; PULSE 50; RESP 16; TEMP 98.2
[2025-05-26] MEDS: SODIUM CHLORIDE 0.9% 500 ML 500 ML in EMPTY BAG 1 BAG IV PRN (13:22)
[2025-05-26] MEDS: VEDOLIZUMAB 300 MG in SODIUM CHLORIDE 0.9% 250 ML IV NR (13:30)
== END ==
LOC: PROCWHC3 12:56
PROVIDERS: ATTEND Internal Medicine Gastroenterology
DX: K51.90 Ulcerative colitis, unspecified, without complications (principal)
CPT/HCPCS: 96365; J3380